=== PATIENT | female | born 1960 | race Caucasian/White ===

== ENCOUNTER 2024-12-17 12:00 | Inpatient (IN) | payer OTHER ==
[~2024-12-17] VITALS: Ht 154.9 cm; Wt 50.8 kg
[2024-12-17] MEDS ORDERED: GRALISE600 MG PO (13:38)
[2024-12-17] MEDS ORDERED: SYNTHROID50 MCG PO (13:38)
[2024-12-17] MEDS ORDERED: DICY20TA PO (13:39)
[2024-12-17] MEDS ORDERED: PEPCID AC10 MG PO (13:39)
[2024-12-17] MEDS ORDERED: ALPRAZOLAM0.5 M1 PO (13:39)
[2024-12-17] MEDS ORDERED: PROTONIX40 MG PO (13:39)
[2024-12-17] MEDS ORDERED: REPATHA SU140 MG/1 M SUBCUTANEO (13:40)
[2024-12-17] MEDS ORDERED: PROAIR RESPICL90 MCG IH (13:40)
[2024-12-23] MEDS ORDERED: BUPIVACAINE HCL/PF 0.25% 30ML VIAL InF ONE (12:45)
[2024-12-23] MEDS ORDERED: CEFTRIAXONE SODIUM 2,000 MG VIAL IV ONE (12:45)
[2024-12-23] MEDS ORDERED: METRONIDAZOLE/SODIUM CHLORIDE 500 MG/100 ML PIGGYBACK IV ONE ×2 (12:45→17:24)
[2024-12-23] MEDS ORDERED: LIDOCAINE HCL 1%/EPINEPHRINE 20ML VIAL IJ ONE (12:45)
[2024-12-23] MEDS ORDERED: 0.9 % SODIUM CHLORIDE 1,000 ML IV SCH (15:30)
[2024-12-23] MEDS ORDERED: DEXTROSE 50 % IN WATER 0.5 G/ML VIAL IV PRN (15:30)
[2024-12-23] MEDS ORDERED: MORPHINE SULFATE 4 MG/ML CARTRIDGE IV PRN (15:30)
[2024-12-23] MEDS ORDERED: ONDANSETRON HCL 2 MG/ML VIAL IV PRN (15:30)
[2024-12-23] MEDS ORDERED: OxyCODONE HCL 5 MG TABLET (ROXICODONE) PO PRN (15:30)
[2024-12-23] MEDS ORDERED: MORPHINE SULFATE 4 MG/ML VIAL IV ONE ×2 (16:35→17:20)
[2024-12-23] MEDS ORDERED: ONDANSETRON HCL 2 MG/ML VIAL ONE ×2 (16:37→21:27)
[2024-12-23] MEDS ORDERED: GABAPENTIN 300 MG CAPSULE PO SCH (17:00)
[2024-12-23] MEDS ORDERED: METRONIDAZOLE/SODIUM CHLORIDE 500 MG/100 ML PIGGYBACK IV SCH (17:00)
[2024-12-23] MEDS ORDERED: HYOSCYAMINE SULFATE 0.125 MG TAB.SUBL SL SCH (17:00)
[2024-12-23] MEDS ORDERED: LEVALBUTEROL HCL 0.63 MG/3 ML SOLUTION IH SCH (18:00)
[2024-12-23 18:54] LABS: BASO % 0.1 % (0.1-1.2); EOS # 0.00 (0.04-0.54); EOS % 0.0 % (0.7-7.0); LYMPH # 0.35 (1.18-3.74); LYMPH % 3.0 % (19.3-53.1); MEAN PLATELET VOLUME 8.50 fl (9.4-12.4); MONO # 0.53 (0.24-0.82); MONO % 4.5 % (4.7-12.5); NEUT # 10.76 (1.56-6.13); NEUT % 92.1 % (34.0-71.1); RED CELL DISTRIBUTION WIDTH 13.8 % (11.6-14.4)
[2024-12-23 19:26] LABS: BUN CREA RATIO 10.0 (7.0-25.0); CREATININE SERUM 0.73 mg/dL (0.55-1.02); GFR 80.52; GLUCOSE FASTING 188.0 mg/dL (65-100); OSMOLALITY SERUM 282.0 MOSM/KG (275-295)
[2024-12-23 19:55] VITALS: BP 158/89; O2SAT 96
[2024-12-23] MEDS ORDERED: ACETAMINOPHEN 500 MG GEL..CAP PO SCH (20:00)
[2024-12-23] MEDS ORDERED: ENALAPRILAT DIHYDRATE 1.25 MG/ML VIAL IV STA (20:16)
[2024-12-23] MEDS ORDERED: ACETAMINOPHEN 500 MG GEL..CAP PO ONE (20:24)
[2024-12-23] MEDS ORDERED: FAMOTIDINE/PF 20 MG/2 ML VIAL ONE (20:25)
[2024-12-23] MEDS ORDERED: ENALAPRILAT DIHYDRATE 1.25 MG/ML VIAL IV PRN (20:30)
[2024-12-23] MEDS ORDERED: FAMOTIDINE/PF 20 MG/2 ML VIAL IV PUSH SCH ×2 (21:00)
[2024-12-23] MEDS ORDERED: CELECOXIB 200 MG CAPSULE PO SCH (21:00)
[2024-12-23 22:43] LABS: ABG PH 7.348 (7.35-7.45)
[2024-12-23 22:45] LABS: ABG PO2 60.0 mmHg (80-100); BICARBONATE 26.5 mmol/l (23-25); o2 21 %
[2024-12-24] VITALS (7 sets, daily range): BP systolic 102–152; BP diastolic 70–83; O2SAT 90–98
[2024-12-24] MEDS ORDERED: PANTOPRAZOLE SODIUM 40 MG/VIAL VIAL IV SCH (06:00)
[2024-12-24] MEDS ORDERED: SYNTHROID 50 MCG (MARCA ORIGINAL) PO SCH (06:00)
[2024-12-24 06:18] LABS: BASO % 0.1 % (0.1-1.2); EOS # 0.00 (0.04-0.54); EOS % 0.0 % (0.7-7.0); LYMPH # 0.67 (1.18-3.74); LYMPH % 6.6 % (19.3-53.1); MEAN PLATELET VOLUME 8.30 fl (9.4-12.4); MONO # 0.89 (0.24-0.82); MONO % 8.8 % (4.7-12.5); NEUT # 8.52 (1.56-6.13); NEUT % 84.2 % (34.0-71.1); RED CELL DISTRIBUTION WIDTH 13.6 % (11.6-14.4)
[2024-12-24 06:54] LABS: BUN CREA RATIO 12.0 (7.0-25.0); CREATININE SERUM 0.52 mg/dL (0.55-1.02); GFR 119.1; GLUCOSE FASTING 116.0 mg/dL (65-100); OSMOLALITY SERUM 276.0 MOSM/KG (275-295)
[2024-12-24] MEDS ORDERED: ORPHENADRINE CITRATE 30 MG/ML AMPUL IM STA (13:24)
[2024-12-24] MEDS ORDERED: ENOXAPARIN SODIUM 40 MG/0.4 ML SYRINGE SUBCUTANEO SCH (17:00)
[2024-12-24] MEDS ORDERED: ORPHENADRINE CITRATE 30 MG/ML AMPUL IM SCH (21:00)
[2024-12-25 01:56] VITALS: BP 107/53; O2SAT 96
[2024-12-25 06:22] LABS: BASO % 0.4 % (0.1-1.2); EOS # 0.08 (0.04-0.54); EOS % 1.0 % (0.7-7.0); LYMPH # 0.69 (1.18-3.74); LYMPH % 9.0 % (19.3-53.1); MEAN PLATELET VOLUME 8.80 fl (9.4-12.4); MONO # 0.58 (0.24-0.82); MONO % 7.5 % (4.7-12.5); NEUT # 6.28 (1.56-6.13); NEUT % 81.7 % (34.0-71.1); RED CELL DISTRIBUTION WIDTH 14.4 % (11.6-14.4)
[2024-12-25 07:02] LABS: BUN CREA RATIO 8.0 (7.0-25.0); CREATININE SERUM 0.49 mg/dL (0.55-1.02); GFR 127.55; GLUCOSE FASTING 110.0 mg/dL (65-100); OSMOLALITY SERUM 284.0 MOSM/KG (275-295)
[2024-12-25 08:00] VITALS: BP 129/80; O2SAT 99
[2024-12-25] MEDS ORDERED: MAGNESIUM SULFATE IN WATER 50 ML IV NR (08:15)
[2024-12-25] MEDS ORDERED: POTASSIUM PHOS,M-BASIC-D-BASIC 3 MM/ML VIAL IV NR (08:15)
[2024-12-25] MEDS ORDERED: ENOXAPARIN SODIUM 40 MG/0.4 ML SYRINGE SUBCUTANEO SCH (09:00)
[2024-12-25] MEDS ORDERED: Cyanocobalamin/Mecobalamin 1 TAB.SL SL NR (11:00)
[2024-12-25] MEDS ORDERED: SOD FERRIC GLUC COMPLX/SUCROSE 62.5 MG in 0.9 % SODIUM CHLORIDE 50 ML IV SCH (11:00)
[2024-12-25 18:46] VITALS: BP 152/85; O2SAT 94
[2024-12-25 19:15] VITALS: O2SAT 98
[2024-12-25 23:47] VITALS: O2SAT 90
[2024-12-26] VITALS: BP 104/67; O2SAT 100
[2024-12-26 04:45] VITALS: O2SAT 98
[2024-12-26] MEDS ORDERED: PEPCID AC20 MG PO (08:04)
[2024-12-26] MEDS ORDERED: HYOSCYAMINE0.125 M1 SL (08:04)
[2024-12-26] MEDS ORDERED: TRAM1TAB98 PO (08:05)
[2024-12-26] MEDS ORDERED: Cyanocobalamin/Mecobalamin 1 TAB.SL SL SCH (09:00)
[2024-12-26] MEDS ORDERED: SOD FERRIC GLUC COMPLX/SUCROSE 62.5 MG in 0.9 % SODIUM CHLORIDE 50 ML IV SCH (09:00)
[2024-12-26 10:19] VITALS: O2SAT 90
== END 2024-12-26 12:17 | disposition home or self-care (01) | DRG 331 ==
LOC: SURG 12-23 07:00 → O/R 12-23 09:00 → SURG 12-23 12:00 → SURH 12-23 17:33
PROVIDERS: Internal Medicine Geriatric Medicine; ADMIT Surgery; ATTEND Surgery
PROC: 0DBP4ZZ Excision of Rectum, Percutaneous Endoscopic Approach (ICD-10-PCS; 2024-12-23)
PROC: 8E0W4CZ Robotic Assisted Procedure of Trunk Region, Percutaneous Endoscopic Approach (ICD-10-PCS; 2024-12-23)
PROC: 0DTN4ZZ Resection of Sigmoid Colon, Percutaneous Endoscopic Approach (ICD-10-PCS; principal; 2024-12-23 07:00)
PROC: 4A12X4Z Monitoring of Cardiac Electrical Activity, External Approach (ICD-10-PCS; 2024-12-24)
DX: K57.32 Diverticulitis of large intestine without perforation or abscess without bleeding (principal); R93.5 Abnormal findings on diagnostic imaging of other abdominal regions, including retroperitoneum; N81.6 Rectocele; I10 Essential (primary) hypertension; R09.02 Hypoxemia
CPT/HCPCS: 44207; 44213; 93228; S2900; 240